=== PATIENT | male | born 1955 | race Caucasian/White ===

== ENCOUNTER → 2021-04-03 | Outpatient (CLI) | payer BC ==
[~2021-04-03] MED LIST: ASA81BEC PO; BUPROPION HCL150 M1 PO; FISH OIL 1,0001 EAC9 PO; FLUTICASONE PRO16 GM INH; IRBESARTAN-HCT1 EAC1 PO; LORAZEPAM 1 MG T1 MG PO; LOVASTATIN 20 M20 MG PO; MELOXICAM15 MG PO; NORVASC5 MG PO; OMEPRAZOLE 20 M20 M1 PO; TAMSULOSIN HCL0.4 MG PO
[2021-04-03 11:50] LABS: HEMOGLOBIN 15.8 gm/dL (14.0-18.0); MCH 32.4 pg (26.0-34.0); MCHC 33.7 g/dL (28.0-37.0); MCV 96.1 fL (80.0-100.0); RBC 4.89 mil/uL (4.50-6.00); RDW 13.2 % (10.5-14.5); WBC 8.9 thou/uL (4.0-11.0)
[2021-04-03 11:52] LABS: URINE BILIRUBIN NEGATIVE (Negative); URINE BLOOD NEGATIVE (Negative); URINE CLARITY CLEAR; URINE COLOR YELLOW; URINE GLUCOSE-RANDOM* NEGATIVE (Negative); URINE KETONES NEGATIVE (Negative); URINE LEUKOCYTES-REFLEX 1+ (Negative); URINE NITRITE-REFLEX NEGATIVE (Negative); URINE PROTEIN (DIPSTICK) NEGATIVE (Negative); URINE SPECIFIC GRAVITY <= 1.005 (1.005-1.035); URINE UROBILINOGEN 0.2 E.U./dl (0.2-1.0)
[2021-04-03 12:00] LABS: ALBUMIN 3.8 g/dL (3.4-5.0); CALCIUM 8.9 mg/dL (8.5-10.1); POTASSIUM 4.4 mmol/L (3.5-5.1)
[2021-04-03 12:04] LABS: BACTERIA-REFLEX 1-9 Few /HPF (None Seen); CASTS None Seen /LPF (None Seen); CRYSTALS None Seen /LPF (None Seen); SQUAMOUS None Seen /LPF (0-3); URINE RBC None Seen /HPF (NONE SEEN); URINE WBC-REFLEX 0-5 Rare /HPF (0-5)
[2021-04-03 12:31] LABS: INR 0.97; PROTIME 10.6 Seconds (10.5-12.1)
== END ==
LOC: PAC 10:39
PROVIDERS: ATTEND Orthopaedic Surgery
DX: Z01.812 Encounter for preprocedural laboratory examination (principal); M16.12 Unilateral primary osteoarthritis, left hip

== ENCOUNTER 2021-04-15 10:31 | Observation (INO) | payer BC ==
[~2021-04-15] VITALS: Ht 182.9 cm; Wt 113.4 kg
[2021-04-15 11:41] VITALS: BP 131/84
[2021-04-15 17:55] VITALS: BP 121/78
[2021-04-15 19:46] VITALS: BP 135/80
--- NOTE | 2021-04-16 03:23 | NUR ---
ASSUMED PT CARE [facility] PM. PT IS ALERT AND ORIENTED X4. PT HAS KEYA DRSG TO THE LEFT HIP WHICH IS C/D/I. PT C/O PAIN WHICH WAS MANAGED BY PRN MEDS. PT ON RA. PT DID NOT VERBALIZE ANY OTHER CONCERNS. FALL PRECAUTIONS IN PLACE. WILL CONTINUE TO MONITOR.
[2021-04-16 08:38] VITALS: BP 148/88
[2021-04-16 09:28] VITALS: BP 148/88
== END 2021-04-16 11:20 | disposition home or self-care (01) ==
LOC: OR → 4S 17:39 → OR 17:42 → 4S 04-16 11:20
PROVIDERS: ADMIT Orthopaedic Surgery; ATTEND Orthopaedic Surgery
DX: M16.12 Unilateral primary osteoarthritis, left hip (principal); Z20.822 Contact with and (suspected) exposure to COVID-19; I10 Essential (primary) hypertension; E78.5 Hyperlipidemia, unspecified; J45.909 Unspecified asthma, uncomplicated; F17.210 Nicotine dependence, cigarettes, uncomplicated; Z79.899 Other long term (current) drug therapy
CPT/HCPCS: 50010; 50101; 50382; 50414; 50855; 52258; 52304; 53078; 53368; 56524; 56527; 56528; 57093; 57095; 57103; 58637; 58959; 62110; 62900; 65130; 70005